=== PATIENT | female | born 1935 | race Caucasian/White ===

== ENCOUNTER → 2016-09-22 | Outpatient (CLI) | payer OTHER | LOC: CIMAGING 11:34 | PROVIDERS: ATTEND Family Medicine | DX: M25.562 Pain in left knee (principal); M85.89 Other specified disorders of bone density and structure, multiple sites | CPT/HCPCS: 73562-PO ==

== ENCOUNTER → 2018-01-24 | Outpatient (CLI) | payer OTHER | LOC: CIMAGING 12:35 | PROVIDERS: ATTEND Family Medicine | DX: N63.20 Unspecified lump in the left breast, unspecified quadrant (principal) | CPT/HCPCS: 76641-PO ==